=== PATIENT | male | born 1990 ===

== ENCOUNTER 2017-03-15 07:22 | Emergency (ER) | payer BC ==
[2017-03-15 07:47] VITALS: RESP 16
--- NOTE | 2017-03-15 08:03 | ED PDOC ---
Arrival/HPI - General Chief Complaint: Male Genitourinary Time Seen by Provider: 03/15/17 07:41 Historian: Patient - History of Present Illness Narrative History of Present Illness (Text): 03/15/17 08:00 26 year old male, presents to the emergency department complaining of seeing blood in his urine this morning. Denies trauma. Denies being sexually active. No burning with urination. No retention. Denies abdominal pain. Denies flank pain. Denies rash. No testicular pain or swelling, no nausea or vomiting. No fevers or chills. No prior history of bladder disease or UTI. No weight loss or night sweats. PMD: Dr. Benites Time/Duration: Other (this morning) Symptom Onset: Sudden Symptom Course: Unchanged Activities at Onset: Light Context: Home Past Medical History - Provider Review Nursing Documentation Reviewed: Yes - Infectious Disease Hx of Infectious Diseases: None - Psychiatric Hx Substance Use: No - Surgical History Other/Comment: rt knee injury 02/24/17 using crutches and knee immobilaizer - Anesthesia Hx Anesthesia: No Family/Social History - Physician Review Nursing Documentation Reviewed: Yes Family/Social History: No Known Family HX Smoking Status: Unknown If Ever Smoked Hx Alcohol Use: No Hx Substance Use: No Allergies/Home Meds Allergies/Adverse Reactions: Allergies seasonal Allergy (Uncoded 03/15/17 07:47) CONGESTION Review of Systems - Review of Systems Constitutional: absent: Fatigue, Fevers Respiratory: absent: SOB Cardiovascular: absent: Chest Pain Gastrointestinal: absent: Abdominal Pain, Diarrhea, Nausea, Vomiting Genitourinary Male: Hematuria. absent: Dysuria, Frequency, Urinary Output Changes, Other (testicular pain) Musculoskeletal: absent: Back Pain, Neck Pain Skin: absent: Rash Neurological: absent: Dizziness Endocrine: absent: Polyuria Hemo/Lymphatic: absent: Easy Bleeding Physical Exam - Physical Exam Narrative Physical Exam (Text): Head: Atraumatic. Normocephalic. Eyes: PERRL. EOMI. Conjunctivae are not pale. ENT: Mucous membranes are moist and intact. Neck: Supple. Cardiovascular: Regular rate. Regular rhythm. Pulmonary/Chest: No evidence of respiratory distress. Abdominal: Soft and non-distended. There is no tenderness. No abdominal pain. No inguinal masses or hernias. Genitourinary: no lesions, no shaft edema or erythema, no penile discharge, no testicular pain or erythema or edema Back: No CVA tenderness. Extremities: No edema. Brace on right knee from prior injury. No calf pain. Skin: Skin is warm and dry. No petechiae. No purpura. Neurological: Motor and sensory exam intact. Psychiatric: Good eye contact. Normal interaction, affect, and behavior. Vital Signs Reviewed: Yes Vital Signs Temp Pulse Resp BP Pulse Ox 03/15/17 12:36 98 F 76 16 132/79 98 03/15/17 08:18 98.3 F 75 16 138/89 98 03/15/17 07:40 99 F 80 16 116/74 97 Temperature: Afebrile Blood Pressure: Normal Pulse: Regular Respiratory Rate: Normal Appearance: Positive for: Well-Appearing, Non-Toxic, Comfortable Pain Distress: None Mental Status: Positive for: Alert and Oriented X 3 Medical Decision Making ED Course and Treatment: 03/15/17 08:00 Impression: 26 year old male presents complaining of seeing blood in his urine this morning. Differential Diagnosis included but are not limited to: UTI VS Rhabdomyolysis vs bladder disease Plan: -- Labs -- Urine Culture -- Urinalysis -- Bladder Ultrasound -- Reassess and disposition Progress Notes: Patient is cardiovascularly stable on examination. No hypotension. No prior urinary disease. He is not sexually active. No penile discharge. No testicular pain. Patient with no dysuria, frequency or retention. After urinating 2 more times in ED his urine has now cleared. It remains painless. No systemtic symptoms. Labs unremarkable. Ultrasound ordered: PROCEDURE: Urinary bladder ultrasound Report Date : 03/15/2017 10:45:08 Dictator : Ramu Kelley MD FINDINGS: Prevoid urinary bladder volume calculated 549 cc and postvoid at 61 cc. . Neither the right nor left ureteral jets visualized. No evidence of intraluminal urinary bladder calculi or focal wall thickening IMPRESSION: Moderate postvoid residual. No evidence of intraluminal gallbladder calculi are focal wall thickening. Patient with some bacteria in ua, will treat with antibiotics with urine culture. As pain free, cv stable, urine now clear, have stressed to patient need for close follow-up. Case discussed directly with on-call urology Dr. Lucio Weeks for follow-up. Limitations of labs and ultrasound reviewed with patient, although given lack of pain and unremarkable exam will discharge with outpatient follow-up. - Lab Interpretations Lab Results: 03/15/17 08:10 03/15/17 08:10 Lab Results 03/15/17 09:10: Urine Color Dark yellow, Urine Appearance Cloudy, Urine pH 6.0, Ur Specific [place] 1.025, Urine Protein 100 H, Urine Glucose (UA) Negative, Urine Ketones Negative, Urine Blood Large H, Urine Nitrate Negative, Urine Bilirubin Small H, Urine Urobilinogen 0.2, Ur Leukocyte Esterase Trace H, Urine RBC Tntc, Urine WBC 1 - 3, Ur Epithelial Cells 1 - 3 03/15/17 08:10: Sodium 143, Potassium 3.9, Chloride 102, Carbon Dioxide 29, Anion Gap 16, BUN 14, Creatinine 0.7, Est GFR ( Amer) > 60, Est GFR (Non- Af Amer) > 60, Random Glucose 90, Calcium 9.7, Total Bilirubin 0.5, AST 28, ALT 30, Alkaline Phosphatase 96, Total Creatine Kinase 106, Total Protein 8.0, Albumin 4.6, Globulin 3.4, Albumin/Globulin Ratio 1.4 03/15/17 08:10: WBC 10.3, RBC 4.92, Hgb 15.8, Hct 45.2, MCV 91.9, MCH 32.1, MCHC 35.0, RDW 13.5, Plt Count 245, MPV 8.7, Gran % 70.5 H, Lymph % (Auto) 24.2 , [place] % (Auto) 4.2, Eos % (Auto) 0.9 L, Baso % (Auto) 0.2, Gran # 7.30 H, Lymph # 2.5, [place] # 0.4, Eos # 0.1, Baso # 0.02 I have reviewed the lab results: Yes - RAD Interpretation Radiology Orders: 03/15/17 09:27 BLADDER ONLY/RESIDUAL URINE [US] Stat - Scribe Statement The provider has reviewed the documentation as recorded by the Scriblucio Moreno All medical record entries made by the Scribe were at my direction and personally dictated by me. I have reviewed the chart and agree that the record accurately reflects my personal performance of the history, physical exam, medical decision making, and the department course for this patient. I have also personally directed, reviewed, and agree with the discharge instructions and disposition. Disposition/Present on Arrival - Present on Arrival Any Indicators Present on Arrival: No History of DVT/PE: No History of Uncontrolled Diabetes: No Urinary Catheter: No History of Decub. Ulcer: No History Surgical Site Infection Following: None - Disposition Have Diagnosis and Disposition been Completed?: Yes Diagnosis: Hematuria Disposition: HOME/ ROUTINE Disposition Time: 12:00 Patient Plan: Discharge Condition: GOOD Discharge Instructions (ExitCare): Acute Hematuria (ED) Additional Instructions: Follow-up with a urologist this week. For any abdominal pain, any fevers, any difficulty urinating, any lightheadedness or dizziness, any back pain, any weight loss or night sweats, any inability to urinate or burning, any persistent bleeding, get rechecked immediately. Take antibiotics as directed. Prescriptions: Nitrofurantoin Macrocrystal [Macrodantin] 100 mg PO BID #10 capsule Referrals: Kimberlyn Benites MD [Primary Care Provider] - Follow up with primary Francis Weeks MD [Staff Provider] - Follow up with primary Forms: [employer] (Armenian)
[2017-03-15 08:19] VITALS: O2SAT 98
[2017-03-15 08:38] LABS: BASO # 0.02 K/mm3 (0.0-2.0); BASO % 0.2 % (0.0-3.0); EOS # 0.1 (0.0-0.7); EOS % 0.9 % (1.5-5.0); GRAN # 7.3 (1.4-6.5); GRAN % 70.5 % (50.0-68.0); HEMATOCRIT 45.2 % (42.0-52.0); LYMPH # 2.5 (1.2-3.4); LYMPH % 24.2 % (22.0-35.0); MEAN CELL VOLUME 91.9 fl (80.0-105.0); MEAN CORPUSCULAR HEMOGLOBIN 32.1 pg (25.0-35.0); MEAN PLATELET VOLUME 8.7 fl (7.0-11.0); MONO # 0.4 (0.1-0.6); MONO % 4.2 % (1.0-6.0); RED CELL DISTRIBUTION WIDTH 13.5 % (11.5-14.5); WHITE BLOOD COUNT 10.3 10^3/ul (4.5-11.0)
[2017-03-15 08:57] LABS: ALB/GLOB RATIO 1.4 (1.1-1.8); ALKALINE PHOSPHATASE 96 U/L (38-126); ALT/SGPT 30 U/L (7-56); AST/SGOT 28 U/L (17-59); BILIRUBIN,TOTAL 0.5 mg/dL (0.2-1.3); BLOOD UREA NITROGEN 14 mg/dL (7-21); CALCIUM 9.7 mg/dL (8.4-10.5); CARBON DIOXIDE 29 mmol/L (21-33); CHLORIDE 102 mmol/L (98-107); GFR AFRICAN-AMERICAN > 60; GLUCOSE,RANDOM 90 mg/dL (70-110); POTASSIUM 3.9 mmol/L (3.6-5.0); SODIUM 143 mmol/L (132-148)
[2017-03-15 09:23] LABS: URINE BILIRUBIN SMALL (NEGATIVE); URINE BLOOD LARGE (NEGATIVE); URINE GLUCOSE (UA) NEGATIVE (NEGATIVE); URINE KETONE NEGATIVE (NEGATIVE); URINE LEUKOCYTE ESTERASE TRACE Leu/uL (NEGATIVE); URINE PROTEIN 100 mg/dL (<30 mg/dL); URINE UROBILINOGEN 0.2 E.U./dL (<1 E.U./dL)
[2017-03-15 09:25] LABS: URINE APPEARANCE CLOUDY (CLEAR); URINE COLOR DARK YELLOW (YELLOW)
[2017-03-15 09:53] LABS: URINE RBC TNTC /hpf (0-2)
--- NOTE | 2017-03-15 10:47 | US ---
PROCEDURE: Urinary bladder ultrasound dated 03/15/2017 HISTORY: Painless s hematuria COMPARISON: No prior TECHNIQUE: Transabdominal sonographic evaluation of the bladder performed. FINDINGS: Prevoid urinary bladder volume calculated 549 cc and postvoid at 61 cc. . Neither the right nor left ureteral jets visualized. No evidence of intraluminal urinary bladder calculi or focal wall thickening IMPRESSION: Moderate postvoid residual. No evidence of intraluminal gallbladder calculi are focal wall thickening.
[2017-03-15 12:37] VITALS: BP 132/79; PULSE 76; TEMP 98
== END 2017-03-15 12:38 | disposition home or self-care (01) ==
LOC: ED 07:22 → MERGE 07:22 → ED 12:38
DX: R31.9 Hematuria, unspecified (principal)